=== PATIENT | male | born 1975 | race African-American/Black ===

== ENCOUNTER 2016-04-01 11:43 | Emergency (ER) | payer OTHER, MEDICAID ==
[~2016-04-01] VITALS: Ht 182.9 cm; Wt 65.8 kg
[~2016-04-01 11:43] MED LIST: ALBUTEROL0.09 MG/A1 INH; ALBUTEROL4 MG PO; CEFDINIR300 MG PO; FERROUS SULFAT325 MG PO; FOLATE1 MG PO; HYDROXYUREA500 MG PO; LACTINEX1 TAB.CHEW PO; LEVAQUIN500 MG PO; MAG-OX400 MG PO; NORCO 10/325 MG1 TAB PO
[2016-04-01 11:55] VITALS: BP 128/77
--- NOTE | 2016-04-01 12:04 | NUR ---
Patient ambulated to bed 3. RN evaluating patient at bedside.
--- NOTE | 2016-04-01 12:11 | NUR ---
PATIENT PRESENTS TO ED WITH C/O SICKLE CELL PAIN TO BACK AND LEGS X 2 DAYS, PT. ALSO STATES HE HAS A RASH TO HIS FACE. DENIES N/V/D; SKIN IS PINK/WARM/DRY; AAOX4 WITH EVEN AND STEADY GAIT; LUNGS CLEAR BL; HR EVEN AND REGULAR; PT DENIES ANY FEVER, CP, SOB, OR COUGH AT THIS TIME; PATIENT STATES PAIN OF 6/10 AT THIS TIME; VSS; PATIENT POSITIONED FOR COMFORT; HOB ELEVATED; BEDRAILS UP X2; BED DOWN. ER MD MADE AWARE OF PT STATUS.
[2016-04-01] MEDS ORDERED: NACL 0.9% 1,000 ML IV SCH (12:18)
[2016-04-01] MEDS ORDERED: ONDANSETRON 4 MG/2 ML VIAL IVP ONE (12:20)
[2016-04-01] MEDS ORDERED: HYDROmorphone 1 MG/ML AMP IVP ONE (12:20)
--- NOTE | 2016-04-01 13:46 | NUR ---
Report given to Michele, RN
--- NOTE | 2016-04-01 15:27 | NUR ---
RETIC COUNT PENDING---PT SITTING UP IN [place]ERNEY WITH LEGS DOWN---DENIES PAIN AT THIS TIME--PT HOLDING CONVERSATION WITH ME, SMILING. WILL CONTINUE TO OBSERVE FOR PAIN OR ANY CHANGES.
--- NOTE | 2016-04-01 16:10 | NUR ---
Patient discharged with v/s stable. Written and verbal after care instructions given and explained. Patient alert, oriented and verbalized understanding of instructions. Ambulatory with steady gait. All questions addressed prior to discharge. ID band removed. Patient advised to follow up with PMD. Rx of ULTRAM given. Patient educated on indication of medication including possible reaction and side effects. Opportunity to ask questions provided and answered.
[2016-04-01 16:12] VITALS: BP 122/77
== END 2016-04-01 16:10 | disposition home or self-care (01) ==
LOC: MED 11:43
DX: M54.5 Low back pain (principal); D57.1 Sickle-cell disease without crisis; R03.0 Elevated blood-pressure reading, without diagnosis of hypertension; J45.909 Unspecified asthma, uncomplicated; F17.210 Nicotine dependence, cigarettes, uncomplicated; Z88.5 Allergy status to narcotic agent
CPT/HCPCS: 36415; 80053; 81001; 82150; 83690; 85025; 85045; 96361; 96374; 96375; 99284; J1170; J2405; J7030

== ENCOUNTER 2018-08-31 06:18 | Emergency (ER) | payer OTHER, MEDICAID ==
[~2018-08-31] VITALS: Ht 182.9 cm; Wt 61.4 kg
[~2018-08-31 06:18] MED LIST changes: +ACET-787 PO; +ALBU0.0939 INH; -ALBUTEROL0.09 MG/A1 INH; -ALBUTEROL4 MG PO; +CEFD300C3 PO; -CEFDINIR300 MG PO; +FERR325E14 PO; -FERROUS SULFAT325 MG PO; -FOLATE1 MG PO; +FOLI1TAB19 PO; +HYDR500C7 PO; -HYDROXYUREA500 MG PO; +LAC PO; -LACTINEX1 TAB.CHEW PO; -LEVAQUIN500 MG PO; -MAG-OX400 MG PO; +MAG400 PO; -NORCO 10/325 MG1 TAB PO
[2018-08-31 06:20] VITALS: BP 143/94
--- NOTE | 2018-08-31 06:30 | NUR ---
PT AMBULATED TO BED 12.
--- NOTE | 2018-08-31 06:45 | NUR ---
43 Y/O MALE PRESENTS TO ED, C/O L KNEE SHARP PAIN 09/14. STATES, THE PAIN STARTED ON SUNDAY, PT WAS TAKING TYLENOL AND USING ICE PACKS BUT UNABLE TO ALLEVIATE PAIN. PT IS ABLE TO AMBULATE. +FULL RANGE OF MOTION, +CMS. VSS. ED MD AWARE. WILL CONTINUE TO MONITOR.
--- NOTE | 2018-08-31 07:03 | NUR ---
REPORT GIVEN TO DIANA TORRES. PT CARE TRANSFERRED.
--- NOTE | 2018-08-31 07:06 | NUR ---
RECEIVED REPORT FROM BRIAN GRIGSBY.
[2018-08-31] MEDS ORDERED: MORPHINE SULFATE 4 MG/ML SYR IVP ONE (07:15)
[2018-08-31] MEDS ORDERED: KETOROLAC 15 MG/ML VIAL IVP ONE (07:15)
[2018-08-31] MEDS ORDERED: NACL 0.9% 1,000 ML IV ONE (07:15)
--- NOTE | 2018-08-31 07:30 | NUR ---
Patient appears to be resting comfortably in bed. Vital Signs within normal limits. Respirations even and unlabored. Patient states that left knee pain of 5/10. Will continue to monitor.
--- NOTE | 2018-08-31 07:57 | NUR ---
lab at bedside.
[2018-08-31 08:30] LABS: HEMATOCRIT 32.2 % (36-52); HEMOGLOBIN 11.2 g/dL (12.0-18.0); MEAN CORPUSCULAR HEMOGLOBIN 28 pg (27-31); MEAN CORPUSCULAR HGB CONC 35 g/dL (33-37); MEAN CORPUSCULAR VOLUME 79.8 fL (80-94); PLATELET COUNT (AUTO) 346 K/uL (140-450); RED BLOOD CELL COUNT(AUTO) 4.03 MIL/uL (4.20-6.10); RED CELL DISTRIBUTION WIDTH 19.1 % (11.6-13.7)
[2018-08-31 08:40] LABS: ANION GAP 14.5 (8-16); CARBON DIOXIDE 27.4 mmol/L (21-32); CREATININE 0.6 mg/dL (0.7-1.3); POTASSIUM 3.9 mmol/L (3.5-5.1)
[2018-08-31 08:45] LABS: TOTAL BILIRUBIN 1.4 mg/dL (0.0-1.0)
[2018-08-31 08:46] LABS: ALBUMIN 3.7 g/dL (3.4-5.0)
[2018-08-31 08:54] LABS: EOSINOPHILS % (MANUAL) 5 % (0-4); LYMPHOCYTES % (MANUAL) 21 % (20-46); MONOCYTES % (MANUAL) 8 % (5-12)
[2018-08-31 08:55] LABS: BASOPHILS % (MANUAL) 0 % (0-2)
[2018-08-31 09:13] VITALS: BP 128/83
--- NOTE | 2018-08-31 09:13 | NUR ---
Patient discharged with v/s stable. Written and verbal after care instructions given and explained. Patient alert, oriented and verbalized understanding of instructions. Ambulatory with steady gait. All questions addressed prior to discharge. ID band removed. Patient advised to follow up with PMD. Rx of Loma given. Patient educated on indication of medication including possible reaction and side effects. Opportunity to ask questions provided and answered.
== END 2018-08-31 09:13 | disposition home or self-care (01) ==
LOC: MED 06:18
DX: D57.00 Hb-SS disease with crisis, unspecified (principal); M25.562 Pain in left knee; J45.909 Unspecified asthma, uncomplicated; Z79.899 Other long term (current) drug therapy; Z88.5 Allergy status to narcotic agent
CPT/HCPCS: 36415; 73562; 80053; 85025; 85045; 96374; 96375; 99284; J1885; J2270; J7030